=== PATIENT | female | born 1990 | race African-American/Black ===

== ENCOUNTER 2018-06-15 05:10 | Emergency (ER) | payer OTHER ==
[2018-06-15 05:28] VITALS: BP 119/80; PULSE 98; TEMP 97.9; BMI 27.2
[2018-06-15 05:52] LABS: BASO % 1.1 % (0-2.0); EOS % 1.3 % (0-4.5); HEMATOCRIT 39.9 % (32.4-45.2); HEMOGLOBIN 14.1 GM/dL (10.7-15.3); LYMPH % 40.9 % (8-40); MCH 32.2 pg (25.7-33.7); MCHC 35.4 g/dl (32.0-36.0); MEAN CELL VOLUME 91.1 fl (80-96); MEAN PLT VOLUME 7.2 fl (7.5-11.1); MONO % 6.1 % (3.8-10.2); NEUT % 50.6 % (42.8-82.8); PLATELET COUNT 270 K/MM3 (134-434); RBC 4.38 M/mm3 (3.60-5.2); WHITE BLOOD COUNT 6.5 K/mm3 (4.0-10.0)
--- NOTE | 2018-06-15 05:52 | PDOC ---
History of Present Illness - General Chief Complaint: Vaginal Bleeding Stated Complaint: 6 WEEKS BLEEDING Time Seen by Provider: 06/15/18 05:41 History Source: Patient Exam Limitations: No Limitations - History of Present Illness Travel History: No Initial Comments: 06/15/18 05:42 Best Contact:[phone] PCP:Dr. Kiah Dr, N, Rutnick (OB) Pmhx:0 Pshx: 11/10/2010 c section; (2) nose recon after bit by a dog) in 2016 Allergies: NKDA FH:0 Social Hx: Cigarettes/ 0 Alcohol/ 0 Drugs/0 LMP:04/29/2018 (abortions in 2015, 2014, 2013, 2012, 2011 27-year-old female presents to the emergency department complaining of vaginal bleed. Patient describes the vaginal bleed as a quarter size brownish discharge after wiping when she voided earlier this morning. Patient denies any abdominal pains, flank pains, fever, chills, nausea/vomiting, diarrhea, headache, dizziness, lightheadedness, chest pain, back pains, flank pains, urinary symptoms: Frequency/urgency/hesitancy, hematuria. Patient states she has not had care yet for this . Past History - Past Medical History Allergies/Adverse Reactions: Allergies Allergy/AdvReac Type Severity Reaction Status Date / Time No Known Allergies Allergy Verified 06/15/18 05:25 - Suicide/Smoking/Psychosocial Hx Smoking History: Never smoked Have you smoked in the past 12 months: No Information on smoking cessation initiated: No Hx Alcohol Use: No Drug/Substance Use Hx: No Review of Systems - Review of Systems Able to Perform ROS?: Yes Comments:: 06/15/18 05:43 CONSTITUTIONAL: Absent: fever, chills, diaphoresis, generalized weakness, malaise, loss of appetite HEENT: Absent: rhinorrhea, nasal congestion, throat pain, throat swelling, difficulty swallowing, mouth swelling, ear pain, eye pain, visual Changes CARDIOVASCULAR: Absent: chest pain, loss of consciousness, palpitations, irregular heart rate, peripheral edema RESPIRATORY: Absent: cough, shortness of breath, dyspnea with exertion, orthopnea, wheezing, stridor, hemoptysis GASTROINTESTINAL: Absent: abdominal pain, abdominal distension, nausea, vomiting, diarrhea, constipation, melena, hematochezia GENITOURINARY: Absent: dysuria, frequency, urgency, hesitancy, hematuria, flank pain, genital pain MUSCULOSKELETAL: Absent: myalgia, arthralgia, joint swelling SKIN: Absent: rash, itching, pallor HEMATOLOGIC/IMMUNOLOGIC: Absent: easy bleeding, easy bruising, lymphadenopathy, frequent infections ENDOCRINE: Absent: unexplained weight gain, unexplained weight loss, heat intolerance, cold intolerance Is the patient limited Bolivian proficient: No *Physical Exam - Vital Signs Last Vital Signs Temp Pulse Resp BP Pulse Ox 97.9 F 98 H 20 119/80 100 06/15/18 05:15 06/15/18 05:15 06/15/18 05:15 06/15/18 05:15 06/15/18 05:15 - Physical Exam Comments: 06/15/18 05:43 GENERAL: Well developed, well nourished. Awake and alert. No acute distress. HEENT: Normocephalic, atraumatic. PERRLA, EOMI. No conjunctival pallor. Sclera are non- icteric. Moist mucous membranes. Oropharynx is clear. NECK: Supple. Full ROM. No JVD. Carotid pulses 2+ and symmetric, without bruits. No thyromegaly. No lymphadenopathy. CARDIOVASCULAR: Regular rate and rhythm. No murmurs, rubs, or gallops. Distal pulses are 2+ and symmetric. PULMONARY: No evidence of respiratory distress. Lungs clear to auscultation bilaterally. No wheezing, rales or rhonchi. ABDOMINAL: Soft. Non-tender. Non-distended. No rebound or guarding. No organomegaly. Normoactive bowel sounds. MUSCULOSKELETAL Normal range of motion at all joints. No bony deformities or tenderness. No CVA tenderness. EXTREMITIES: No cyanosis. No clubbing. No edema. No calf tenderness. SKIN: Warm and dry. Normal capillary refill. No rashes. No jaundice. Pelvic: External genitalia normal without lesions. Vaginal vault is clear without blood or discharge. Cervix is long and closed. Moderate Sedation - Procedure Monitoring Vital Signs: Procedure Monitoring Vital Signs Temperature 97.9 F 06/15/18 05:15 Pulse Rate 98 H 06/15/18 05:15 Respiratory Rate 20 06/15/18 05:15 Blood Pressure 119/80 06/15/18 05:15 O2 Sat by Pulse Oximetry (%) 100 06/15/18 05:15 ED Treatment Course - LABORATORY CBC & Chemistry Diagram: 06/15/18 05:30 06/15/18 05:30 - RADIOLOGY Radiograph Interpretation: 06/15/18 05:44 Transvaginal US: Progress Note - Progress Note Progress Note: 0701hrs : signed out to GAETANO Jimenez to reeval and transvaginal US *DC/Admit/Observation/Transfer - Referrals Referrals: Tim Jeter [Primary Care Provider] - - Patient Instructions - Post Discharge Activity
[2018-06-15 06:22] LABS: URINE APPEARANCE CLEAR; URINE BILIRUBIN NEGATIVE (<2.0 mg/dL); URINE COLOR LTYELLOW; URINE GLUCOSE (UA) NEGATIVE (NEGATIVE); URINE KETONE NEGATIVE (NEGATIVE); URINE LEUK ESTERASE NEGATIVE (NEGATIVE); URINE NITRITE NEGATIVE (NEGATIVE); URINE PROTEIN NEGATIVE (NEGATIVE); URINE UROBILINOGEN NEGATIVE mg/dL (0.2-1.0)
[2018-06-15 06:26] LABS: EPI CELLS RARE /HPF (FEW); URINE BACTERIA RARE /hpf (NONE SEEN); URINE MUCUS RARE
[2018-06-15 06:42] LABS: ALK PHOS 44 U/L (45-117); ANION GAP 8 MMOL/L (8-16); BILIRUBIN,TOTAL 0.8 mg/dL (0.2-1); BLOOD UREA NITROGEN 19 mg/dL (7-18); CALCIUM 9.6 mg/dL (8.5-10.1); CHLORIDE 104 mmol/L (98-107); CO2 25 mmol/L (21-32); CREATININE 0.6 mg/dL (0.55-1.3); GLUCOSE,RANDOM 93 mg/dL (74-106); POTASSIUM 4.2 mmol/L (3.5-5.1); SGOT/AST 16 U/L (15-37); SGPT/ALT 20 U/L (13-61); SODIUM 138 mmol/L (136-145); TOT PROT 7.4 g/dl (6.4-8.2)
--- NOTE | 2018-06-15 07:28 | PDOC ---
*Physical Exam - Vital Signs Last Vital Signs Temp Pulse Resp BP Pulse Ox 97.9 F 98 H 20 119/80 100 06/15/18 05:15 06/15/18 05:15 06/15/18 05:15 06/15/18 05:15 06/15/18 05:15 - Physical Exam General Appearance: Yes: Nourished. No: Apparent Distress HEENT: positive: Normal Voice. negative: Pale Conjunctivae, Scleral Icterus (R) , Scleral Icterus (L) Respiratory/Chest: negative: Respiratory Distress, Accessory Muscle Use Cardiovascular: positive: Regular Rate Gastrointestinal/Abdominal: positive: Soft. negative: Tender ED Treatment Course - LABORATORY CBC & Chemistry Diagram: 06/15/18 05:30 06/15/18 05:30 - ADDITIONAL ORDERS Additional order review: Laboratory Results 06/15/18 06/15/18 06/15/18 05:30 05:30 05:30 Sodium 138 Potassium 4.2 Chloride 104 Carbon Dioxide 25 Anion Gap 8 BUN 19 H Creatinine 0.6 Creat Clearance w eGFR > 60 Random Glucose 93 Calcium 9.6 Total Bilirubin 0.8 AST 16 ALT 20 Alkaline Phosphatase 44 L Total Protein 7.4 Albumin 4.0 Beta HCG, Quant 41931.7 Urine Color Ltyellow Urine Appearance Clear Urine pH 5.0 Ur Specific Ogilvie 1.021 Urine Protein Negative Urine Glucose (UA) Negative Urine Ketones Negative Urine Blood 1+ H Urine Nitrite Negative Urine Bilirubin Negative Urine Urobilinogen Negative Ur Leukocyte Esterase Negative Urine WBC (Auto) 1 Urine RBC (Auto) 1 Ur Epithelial Cells Rare Urine Bacteria Rare Urine Mucus Rare Blood Type B POSITIVE 06/15/18 05:30 RBC 4.38 MCV 91.1 MCHC 35.4 RDW 12.0 MPV 7.2 L Neutrophils % 50.6 Lymphocytes % 40.9 H Monocytes % 6.1 Eosinophils % 1.3 Basophils % 1.1 Medical Decision Making - Medical Decision Making 06/15/18 07:27 CHange of shift, care of patient accepted form GAETANO Vergara, 27 yo F w/ vaginal bleeding in early . Blood type B positive. Pending sono. Pt feels well. no pain at this time. 06/15/18 09:58 Beta 14,500. Sono does not show a pole, only sees a gestational sac. Pt has an OBGYN appt on the but I told her to return to the ED in 2 days for repeat beta. She verbalized understanding and will return in 2 days. She is non toxic appearing in NAD, no pain at this time. *DC/Admit/Observation/Transfer Diagnosis at time of Disposition: Threatened in early - Discharge Dispostion Disposition: HOME Condition at time of disposition: Stable - Referrals Referrals: Tim Jeter [Primary Care Provider] - - Patient Instructions Printed Discharge Instructions: DI for Threatened Additional Instructions: PLEASE RETURN IN 2 DAYS FOR REPEAT BETA HCG. RETURN EARLIER FOR ANY WORSENING/ CONCERNING SYMPTOMS - Post Discharge Activity
== END 2018-06-15 10:09 | disposition home or self-care (01) ==
LOC: JER 05:10
DX: O26.891 Other specified pregnancy related conditions, first trimester (principal); O20.0 Threatened abortion; Z3A.01 Less than 8 weeks gestation of pregnancy
CPT/HCPCS: 36415; 76830-TC; 80053; 81003; 81015; 84702; 85025; 86850; 86900; 86901; 99282-25

== ENCOUNTER 2018-06-23 09:31 | Day surgery (SDC) | payer OTHER ==
[2018-06-20 09:59] VITALS: BMI 27.2
[2018-06-23] MEDS ORDERED: DEXAMETHASONE SOD PHOSPHATE 4 MG/1 ML VIAL ONE (12:22)
[2018-06-23] MEDS ORDERED: MIDAZOLAM HCL 2 MG/2 ML SINGLE DOSE VIAL ONE (12:22)
[2018-06-23] MEDS ORDERED: LIDOCAINE HCL/PF 2% SDV 5ML VIAL ONE (12:22)
[2018-06-23] MEDS ORDERED: PROPOFOL 20 ML ONE (12:46)
[2018-06-23] MEDS ORDERED: OXYTOCIN 10 UNITS/ML VIAL ONE (13:00)
[2018-06-23] MEDS ORDERED: PHENYLEPHRINE HCL 10 MG/1 ML SINGLE DOSE VIAL ONE (13:03)
[2018-06-23] MEDS ORDERED: DESFLURANE GAS 240 ML BOTTLE IH ONE (13:03)
[2018-06-23] MEDS ORDERED: oxyCODONE HCL 5 MG TABLET PO PRN (13:19)
[2018-06-23] MEDS ORDERED: ONDANSETRON 4 MG/2 ML VIAL IVPUSH PRN (13:19)
[2018-06-23] MEDS ORDERED: LACTATED RINGERS SOLUTION 1,000 ML IV SCH (13:30)
--- NOTE | 2018-06-23 13:42 | OP ---
Operative Note - Note: Operative Date: 06/23/18 Pre-Operative Diagnosis: missed Operation: suction dilatation curettage. Karyotyping Findings: uterus 6 weeks' size Post-Operative Diagnosis: Same as Pre-op Surgeon: Simón Gonzalez Anesthesia: General Estimated Blood Loss (mls): 50 Operative Report Dictated: Yes
--- NOTE | 2018-06-23 13:43 | PN ---
Progress Note (short form) - Note Progress Note: Postop: Patient stabl Procedure discussed. Mother called. Instructions give
--- NOTE | 2018-06-23 14:16 | OP ---
DATE OF OPERATION: DATE OF DICTATION: 06/23/2018 PREOPERATIVE DIAGNOSIS: Missed . POSTOPERATIVE DIAGNOSIS: Missed . PROCEDURES: 1. Suction dilation and curettage. 2. Karyotyping. SURGEON: Lisa Gr MD CHERRY DIPPER: None. ANESTHESIA: Dr. Mejia, general with LMA. PROCEDURE AND FINDINGS: Under light general anesthesia in dorsal lithotomy position, the patient was examined. The cervix was closed. Uterus was noted to be anteverted, anteflexed 6-week size. Routine prep and drape was carried out. The cervix was grasped with tenaculum and gently dilated. Using gallstone forceps, part of the products of conception was retrieved and sent for karyotyping. With further dilatation, suction curette No. 8 was used. Suction curettage was carried out without difficulties producing a fair amount of tissue. Sharp curettage alternated with suction until the cavity was completely emptied. Oxytocin was given IV and Methergine IM. The patient withstood the procedure very well. Uterus was well contracted. Bleeding was gone at the end of the procedure. Total blood loss was 50 mL. The patient withstood the procedure very well. There were no complications from the surgery nor anesthesia. The patient was transferred to PACU stable and comfortable. MD GERONIMO GALARZA/[id number]
[2018-06-23 16:57] VITALS: BP 116/70; PULSE 83; TEMP 98.2
--- NOTE | 2018-06-25 17:34 | PATH ---
Surgical Pathology Report Patient Name: DANA MOYER Med. Rec. #: [id number] /Age/Gender: 1990 (Age: 27) / F Account: [id number] Location: [facility] SURGICAL Taken: 06/23/2018 Received: 06/23/2018 Reported: 06/25/2018 Physicians: Simón Gonzalez MD Specimen(s) Received A: PRODUCTS OF CONCEPTION B: PRODUCTS OF CONCEPTION Clinical History Missed Final Diagnosis A. PRODUCTS OF CONCEPTION: NO CHORIONIC VILLI PRESENT. DECIDUAL TISSUE AND HYPERSECRETORY TYPE ENDOMETRIUM. B. PRODUCTS OF CONCEPTION: CHORIONIC VILLI WITH HYDROPIC CHANGES. Comment: chromosome study result to follow as an addendum report. Clinical correlation is recommended. Electronically Signed Mary Jane Liang M.D. Gross Description A. Received fresh labeled "products of conception," is a 4.0 x 1.5 x 0.4 cm aggregate of pink-vallejo soft tissue fragments. No definite villous tissue or somatic tissue is identified. The specimen is entirely submitted in one cassette. B. Received in formalin labeled "POC," is an 8.0 x 5.5 x 1.0 cm aggregate of vallejo-brown soft tissue fragments. Villous tissue is identified. No somatic tissue is identified. A small business representative portion is submitted in one cassette. /06/23/201806/23/2018
== END 2018-06-23 15:45 | disposition home or self-care (01) ==
LOC: JASU-SURG 09:31
PROVIDERS: ATTEND Specialist
PROC: 10D17ZZ Extraction of Products of Conception, Retained, Via Natural or Artificial Opening (ICD-10-PCS; principal; 2018-06-23 12:00)
DX: O02.1 Missed abortion (principal)
CPT/HCPCS: 86900; 88305-TC; 94760

== ENCOUNTER 2019-06-08 06:25 | Inpatient (IN) | payer OTHER ==
[2019-06-08] MEDS ORDERED: CITRIC ACID/SODIUM CITRATE 30 ML UNIT-DOSE CUP PO ONE (06:45)
[2019-06-08] MEDS ORDERED: ELECTROLYTE-148 SOLN 1,000 ML IV SCH ×2 (06:45→07:45)
[2019-06-08 07:50] LABS: BASO % 0.5 % (0-2.0); EOS % 0.9 % (0-4.5); HEMATOCRIT 31.8 % (32.4-45.2); HEMOGLOBIN 11.4 GM/dL (10.7-15.3); MCH 32.6 pg (25.7-33.7); MCHC 35.7 g/dl (32.0-36.0); MEAN CELL VOLUME 91.2 fl (80-96); MEAN PLT VOLUME 7.5 fl (7.5-11.1); MONO % 6.3 % (3.8-10.2); NEUT % 65.3 % (42.8-82.8); PLATELET COUNT 286 K/MM3 (134-434); RBC 3.49 M/mm3 (3.60-5.2); RDW 12.8 % (11.6-15.6); WHITE BLOOD COUNT 6.5 K/mm3 (4.0-10.0)
[2019-06-08 08:02] LABS: INR 0.91 (0.83-1.09); PROTHROMBIN TIME (PATIENT) 10.7 SEC (9.7-13.0)
[2019-06-08 08:05] LABS: ACTIVATED PTT 28.5 SECONDS (25.2-36.5)
[2019-06-08 08:12] VITALS: BMI 37.1
[2019-06-08] MEDS ORDERED: ONDANSETRON 4 MG/2 ML VIAL IVPUSH PRN (08:15)
--- NOTE | 2019-06-08 08:25 | HP ---
Past Medical History - Primary Care Physician PCP:: Simón Gonzalez E - Admission Chief Complaint: Repeat c/section History of Present Illness: Uneventful Previous c/s x 1. Admitted for repeat c/s at 39 w 3d. History Source: Patient, Caregiver Limitations to Obtaining History: No Limitations - Past Medical History RELAY ASSEMBLER: No: Alzheimer's, CVA, Dementia, Migraine, Multiple Sclerosis, Peripheral Neuropathy, Parkinson's, Seizure, Syncope, TIA, Vertigo, Other Cardiovascular: No: AFIB, Aneurysm, Aortic Insufficiency, Aortic Stenosis, CAD, CHF, Deep Vein Thrombosis, HTN, Hyperlipdemia, PA, Mitral Insufficiency, Mitral Stenosis, Murmur, Pulmonary Hypertension, Other Pulmonary: No: Asthma, Bronchitis, Cancer, COPD, O2 Dependent, Pneumonia, Previously Intubated, Pulmonary Embolus, Pulmonary Fibrosis, Sleep Apnea, Other Gastrointestinal: No: Ascites, Cancer, Constipation, Crohn's Disease, Diverticulitis, Diverticulosis, Esophageal Varices, Gastritis, GERD, GI Bleed, Hemorrhoids, Hiatal Hernia, Inflamatory Bowel Disease, Irritable Bowel Disease, Pancreatitis, Peptic Ulcer Disease, Ulcerative Colitis, Other Hepatobiliary: No: Cirrhosis, Cholelithiasis, Cholecystitis, Choledocholithiasis , Hepatitis A, Hepatitis B, Hepatitis C, Other Renal/: No: Renal Failure, Renal Inusuff, BPH, Cancer, Hematuria, Hemodialysis , Neurogenic Bladder, Renal Calculi, UTI, Other Reproductive: No: Ectopic , Endometriosis, Fibroids, PID, Polycystic Ovary Syndrome, Postmenopausal, Other ...: 3 ...Para: 1 ...Term: 1 ...: 0 ...Spon : 1 ...Induced : 0 ...Multiple Gestation: 0 ...LMP: 09/10/18 ... Weeks Gestation by Dates: 38.5 ...EDC by Sono: 06/12/19 Heme/Onc: No: Anemia, B12 Deficiency, Bleeding Disorder, Cancer, Current Chemotherapy, Current Radiation Therapy, Hemochromatosis, Hypercoaguable State, Myeloproliferative Synd, Sickle Cell Disease, Sickle Cell Trait, Thrombocytopenia, Other Infectious Disease: No: AIDS, C-Diff, Herpes Zoster, HIV, MRSA, STD's, Tuberculosis, VREF, Other Psych: No: Addictions, Anxiety, Bipolar, Depression, Panic, Psychosis, Schizophrenia, Other Musculoskeletal: No: Bursitis, Chronic low back pain, Hemiparesis, Hemiplegia, Osteoarthritis, Paraplegia, Other Rheumatology: No: Fibromyalgia, Gout, Lupus, Rheumatoid Arthritis, Sarcoidosis, Vasculitis, Other ENT: No: Allergic Rhinitis, Sinusitis, Other Dermatology: No: Basal Cell, Cellulitis, Eczema, Melanoma, Psoriasis, Squamous Cell, Other - Past Surgical History Past Surgical History: Yes: None Hx Myomectomy: No Hx Transabdominal Cerclage: No - Smoking History Smoking history: Never smoked Have you smoked in the past 12 months: No - Alcohol/Substance Use Hx Alcohol Use: No - Social History Do you think of yourself as: Straight/Heterosexual Home Medications - Allergies Allergies/Adverse Reactions: Allergies Allergy/AdvReac Type Severity Reaction Status Date / Time No Known Allergies Allergy Verified 06/08/19 07:20 - Home Medications Home Medications: Ambulatory Orders NK [No Known Home Medication] 06/15/18 Review of Systems - Review of Systems Constitutional: reports: No Symptoms Eyes: reports: No Symptoms HENT: reports: No Symptoms Neck: reports: No Symptoms Cardiovascular: reports: No Symptoms Respiratory: reports: No Symptoms Gastrointestinal: reports: No Symptoms Genitourinary: reports: No Symptoms Breasts: reports: No Symptoms Reported Musculoskeletal: reports: No Symptoms Integumentary: reports: No Symptoms Neurological: reports: No Symptoms Endocrine: reports: No Symptoms Hematology/Lymphatic: reports: No Symptoms Psychiatric: reports: No Symptoms Physical Exam - Maternity Vital Signs: Vital Signs Temperature 98.1 F 06/08/19 08:00 Pulse Rate 92 H 06/08/19 08:00 Respiratory Rate 18 06/08/19 08:00 Blood Pressure 123/81 06/08/19 08:00 O2 Sat by Pulse Oximetry (%) Constitutional: Yes: Well Nourished, No Distress, Calm Eyes: Yes: WNL, Conjunctiva Clear, EOM Intact HENT: Yes: WNL, Atraumatic, Normocephalic Neck: Yes: WNL, Supple, Trachea Midline Cardiovascular: Yes: WNL, Regular Rate and Rhythm Breast(s): Yes: WNL - Abdominal Exam/OB Fundal Height: 40 Number of Fetuses: Single Presentation: Vertex Contractions: No Heart Rate Location: LUQ Category: I - Vaginal Exam/OB Vaginal Bleediing: No Amniotic Membrane Status: Intact Station: -2 - Physical Exam Musculoskeletal: Yes: WNL Edema: No Integumentary: Yes: WNL ...Motor Strength: WNL Psychiatric: Yes: WNL - Labs Lab Results: CBC, BMP 06/08/19 07:30 Problem List - Problems (1) Term , repeat Code(s): Z34.90 - ENCNTR FOR SUPRVSN OF NORMAL , UNSP, UNSP TRIMESTER Assessment/Plan Repeat c/section. All optionms discussed. Pt. wants rep. c/s. Aware of all risks, poss complications and consents.
[2019-06-08 08:26] LABS: BLOOD UREA NITROGEN 13.5 mg/dL (7-18); CALCIUM 8.2 mg/dL (8.5-10.1); CREATININE 0.4 mg/dL (0.55-1.3); POTASSIUM 3.8 mmol/L (3.5-5.1)
[2019-06-08] MEDS ORDERED: OXYTOCIN 20 UNITS in 0.9% NS 40 UNIT/2,000 ML INFUS.BAG IV ONE (08:28)
[2019-06-08] MEDS ORDERED: morphine SULFATE/PF 0.5 MG/ML (2cc Syringe - QUVA) ONE (08:43)
[2019-06-08] MEDS ORDERED: ceFAZolin SODIUM 1 GM VIAL ONE (09:05)
[2019-06-08] MEDS ORDERED: PHENYLEPHRINE HCL 10 MG/1 ML SINGLE DOSE VIAL ONE (09:05)
[2019-06-08] MEDS: OXYTOCIN 20 UNITS in 0.9% NS 20 UNIT/1,000 ML INFUS.BAG IV SCH ×3 (09:35→20:26)
[2019-06-08] MEDS ORDERED: METHYLERGONOVINE MALEATE 0.2 MG/1 ML AMP IM PRN (09:52)
[2019-06-08] MEDS ORDERED: oxyCODONE HCL 5 MG TABLET PO PRN (09:52)
[2019-06-08] MEDS ORDERED: ACETAMINOPHEN 1000 MG/100 ML VIAL (NON FORMULARY) IVPB PRN (10:06)
--- NOTE | 2019-06-08 10:13 | OP ---
Operative Note - Note: Operative Date: 06/08/19 Pre-Operative Diagnosis: Term . Previous c/section. Incisional keloid. Operation: Repeat c/section. Resection of keloid Post-Operative Diagnosis: Same as Pre-op Surgeon: Simón Gonzalez License Inspector: Yany Rios Anesthesia: Spinal Estimated Blood Loss (mls): 550 Operative Report Dictated: Yes
--- NOTE | 2019-06-08 10:22 | SURG ---
Surgery Remnant Sorter Note Remnant Sorter: Yany Rios PA-C Date of Service: 06/08/19 Diagnosis: Term . Previous c/section. Incisional keloid. Procedure: Repeat c/section. Resection of keloid I was present for the entirety of the operative procedure. For further detail, please refer to operative report. Visit type - Case Type Case Type: Scheduled - Emergency Emergency Visit: No - New patient This patient is new to me today: Yes Date on this admission: 06/08/19
[2019-06-08] MEDS: IBUPROFEN 800 MG/8 ML IJ IVPB PRN ×2 (12:04→20:25)
--- NOTE | 2019-06-08 12:28 | OP ---
DATE OF OPERATION: DATE OF DICTATION: 06/08/2019 PREOPERATIVE DIAGNOSES: 1. Intrauterine at term. 2. Previous section. 3. Keloid of Pfannenstiel incision. POSTOPERATIVE DIAGNOSES: 1. Intrauterine at term. 2. Previous section. 3. Keloid of Pfannenstiel incision. PROCEDURES: 1. Repeat section. 2. Resection of keloid. SURGEON: Eb Anderson MD BANKING PIN ADJUSTER: GAETANO Contreras ANESTHESIA: Spinal. ANESTHESIOLOGIST: Maria Eugenia Temple MD PROCEDURE AND FINDINGS: Under excellent spinal block following routine prep and drape, old keloid was excised. Incision was carried transversely through the subcutaneous tissue and fascia. The recti muscles were dissected off the fascia and in the midline. Peritoneum was opened vertically. Term uterus with normal adnexa was noted. No adhesions. Bulging lower uterine segment was observed. Bladder flap was opened transversely and peeled down. Hysterotomy was done in transverse fashion and clear amniotic fluid was noted. Incision was extended using bandage scissors, and male infant was delivered, cried, and breathed spontaneously. Cord was wound around the neck. Baby was given Apgars 8 and 9, and weight was 8 pounds 0 ounces. Cord was clamped and divided with delay. Placenta was removed, and uterine cavity was cleaned. The internal os was dilated. Uterus was closed with single layer Biosyn 0 continuous suture. Uterus was placed in the abdomen, and the area was lavaged. Hemostasis was excellent. Count was correct. Abdomen was closed in layers. Peritoneum closed with Biosyn 2-0 suture and fascia with Vicryl 1 suture. Subcutaneous area was closed with several 2-0 Biosyn sutures, and skin was approximated with 3-0 V-Lock subcuticular stitch. Sterile dressing was applied and held in place with a binder. Urine was clear in the Zuluaga catheter bag. Blood loss was 550 mL. Patient did very well and was transferred to PACU comfortable and stable. EB ANDERSON MD [id number] MTDD
[2019-06-08] MEDS ORDERED: CEFAZOLIN 1 GM/D5W 1 GM/50 ML BAG IVPB ONE (18:00)
[2019-06-09] MEDS: IBUPROFEN 800 MG/8 ML IJ IVPB PRN (03:46)
--- NOTE | 2019-06-09 07:51 | PN ---
Progress Note (short form) - Note Progress Note: Surgery POD #1 RPT with scar revision patient seen and examined at bedside with no complaints. Patient states she has been OOB ambulating and voiding without limitation. Her pain is controlled with the oral medication and she is tolerating her regular diet. She denies any CO, SOB, N/V, fever or chills. Vital Signs Temp 98.1 F 06/09/19 05:00 Pulse 75 06/09/19 05:00 Resp 06/09/19 05:46 BP 133/76 06/09/19 05:00 Pulse Ox 100 06/08/19 11:30 Intake & Output 06/08/19 06/08/19 06/09/19 11:59 23:59 11:59 Intake Total 4000 750 1500 Output Total 500 300 800 Balance 3500 450 700 Weight 184 lb Intake: IV 4000 750 1000 NORMAL SALINE+20 UNITS 9290 [id number] 9393 OXYTOCIN - 20 unit In 1, 000 ml @ 125 mls/hr IV ASDIR SARAY Rx#:[id number] Plasma-Lyte 148 - 1,000 2000 ml @ 1000 mls/hr IV ASDIR SARAY Rx#:[id number] Plasma-Lyte 148 - 1,000 1000 ml @ 125 mls/hr IV ASDIR SARAY Rx#:[id number] IVPB 500 Output: Urine 500 300 800 Zuluaga 500 300 Void 800 Other: Voiding Method Indwelling Catheter Indwelling Catheter Toilet # Unmeasured Voids Void 2 Height 4 ft 11 in Body Mass Index (BMI) 37.1 Weight 8 lb Length 20 in CBC, BMP 06/09/19 08:43 06/08/19 07:30 PE: A&Ox3, NAD Unlabored resp on RA ABD: soft, ND with minimal ttp at incision. Incision with steri strips, c/d/i with surrounding tissue intact with no tracking erythema edema or active d/c. Problem List - Problems (1) Term , repeat Assessment/Plan: POS #1 doing well 1) Encourage IS 2) OOB as tolerated 3) Pain control 4) ABD binder PRN comfort 5) D/c planning for home tomorrow vs. Evaluation and plan discussed with Dr Bashir. Code(s): Z34.90 - ENCNTR FOR SUPRVSN OF NORMAL , UNSP, UNSP TRIMESTER
--- NOTE | 2019-06-09 08:08 | PN ---
Progress Note (short form) - Note Progress Note: POD # 1. VSS. Doing well. Voiding w ease. Zuluaga out last night. Passing flatus on reg. diet. Happy. Exam WNL. Problem List - Problems (1) Term , repeat Code(s): Z34.90 - ENCNTR FOR SUPRVSN OF NORMAL , UNSP, UNSP TRIMESTER
[2019-06-09 09:23] LABS: BASO % 0.3 % (0-2.0); HEMATOCRIT 32.8 % (32.4-45.2); HEMOGLOBIN 11.6 GM/dL (10.7-15.3); LYMPH % 16.2 % (8-40); MCH 32.5 pg (25.7-33.7); MCHC 35.4 g/dl (32.0-36.0); MEAN CELL VOLUME 91.7 fl (80-96); MEAN PLT VOLUME 7.5 fl (7.5-11.1); NEUT % 76.5 % (42.8-82.8); PLATELET COUNT 278 K/MM3 (134-434); RBC 3.58 M/mm3 (3.60-5.2); RDW 12.6 % (11.6-15.6); WHITE BLOOD COUNT 9.7 K/mm3 (4.0-10.0)
[2019-06-09] MEDS: ACETAMINOPHEN 325 MG TABLET (FP) PO PRN ×3 (09:25→20:16)
[2019-06-09] MEDS: SIMETHICONE 80 MG TAB.CHEW (FP) PO PRN ×3 (09:26→20:16)
[2019-06-09] MEDS ORDERED: BISACODYL 10 MG SUPP.RECT RC PRN (09:56)
[2019-06-09] MEDS ORDERED: ENOXAPARIN NA (PORCINE) 30 MG/0.3 ML DISP.SYRIN SQ SCH (10:00)
[2019-06-09] MEDS: IBUPROFEN 600 MG TABLET (FP) PO PRN ×2 (14:37→20:14)
[2019-06-09] MEDS: OXYTOCIN 20 UNITS in 0.9% NS 20 UNIT/1,000 ML INFUS.BAG IV SCH (20:07)
[2019-06-09] MEDS: oxyCODONE HCL 5 MG TABLET PO PRN (20:15)
[2019-06-10] MEDS: ACETAMINOPHEN 325 MG TABLET (FP) PO PRN (04:55)
[2019-06-10] MEDS: SIMETHICONE 80 MG TAB.CHEW (FP) PO PRN ×3 (04:55→22:46)
[2019-06-10] MEDS: oxyCODONE HCL 5 MG TABLET PO PRN ×3 (04:56→22:45)
[2019-06-10] MEDS: IBUPROFEN 600 MG TABLET (FP) PO PRN ×3 (04:56→22:46)
--- NOTE | 2019-06-10 10:38 | PN ---
Progress Note (short form) - Note Progress Note: POD # 2 VSS Bowels OK, Feels great. No . PE OK. Wound clean. Abd, soft. Breasts soft. No cva, extrem. T Lochia WNL. Problem List - Problems (1) Term , repeat Code(s): Z34.90 - ENCNTR FOR SUPRVSN OF NORMAL , UNSP, UNSP TRIMESTER
--- NOTE | 2019-06-10 10:40 | PN ---
Progress Note (short form) - Note Progress Note: POD#2 PT without any complaints of CP/SOB. No nausea or emesis with eating. Passing flatus, no BM. She has some complaints of Vital Signs Period Temp Pulse Resp BP Sys/Powell Pulse Ox Last 24 Hr 97.6 F-98.2 F 79-85 18-20 110-127/63-80 GEN: A&0x3, NAD CV; RRR Lungs: CTA b/l ABD: soft, non-distended, inc tenderness. Inc c/d/i
--- NOTE | 2019-06-10 14:45 | PATH ---
Surgical Pathology Report Patient Name: DANA MOYER Med. Rec. #: [id number] /Age/Gender: 1990 (Age: 28) / F Account: [id number] Location: [facility] OBS/SENIOR CYBER SECURITY ANALYST Taken: 06/08/2019 Received: 06/09/2019 Reported: 06/10/2019 Physicians: Simón Gonzalez MD Specimen(s) Received A: OLD SCAR B: PLACENTA Clinical History , 39.3 weeks Final Diagnosis A. OLD SCAR, EXCISION: SKIN AND UNDERLYING SOFT TISSUE WITH DERMAL FIBROSIS CONSISTENT WITH SCAR. B. PLACENTA, SECTION: 686 G THIRD TRIMESTER PLACENTA WITH TRIVASCULAR UMBILICAL CORD AND UNREMARKABLE PLACENTAL MEMBRANES. Electronically Signed Valeria oTbias M.D. Gross Description A. Received in formalin labeled "old scar," are 2 vallejo, unoriented portions of skin with underlying soft tissue measuring 1.0 x 0.4 cm and 9.0 x 0.5 cm. The epidermal surfaces display a well-healed scar. Night Manager sections are submitted in one cassette. B. The specimen is received fresh labeled placenta and is a 686 gram, 19.5 x 15.5 x 3.2 cm. placenta with attached membranes and umbilical cord. The attached membranes are vallejo, translucent with focal opacities and insert marginally. The umbilical cord measures 40 cm. in length and averages 1.3 cm. in diameter. The cord inserts eccentrically, 2.5 cm. to the nearest margin. No true knots or strictures are identified. Cut surface of the umbilical cord reveals 3 vessels. The surface is kearns-blue with minimal fibrin deposition and appropriate caliber vessels. The maternal surface is red-brown with focal defects. Sectioning reveals red-brown, spongy parenchyma. No lesions are identified. Night Manager sections are submitted in three cassettes as follows: 1- membrane rolls and umbilical cord; 2-3- full thickness sections of placenta. /06/09/2019 [facility]/06/09/2019
--- NOTE | 2019-06-10 15:16 | PN ---
Progress Note (short form) - Note Progress Note: Anesthesia Called to see pt with headache. Anesthesia chart reviewed c/o frontal headache. Headache not typical of spinal headache on post op day #2. Will order fiorecet po to see if there is any improvement. Instructed nurse for Tylenol po intake. Continue to observe to see if headache continues. Xu Serna MD
[2019-06-10] MEDS: ACETAMINOPHEN/CAFFEINE/BUTALBITAL 1 TAB PO PRN (15:32)
[2019-06-11] MEDS: oxyCODONE HCL 5 MG TABLET PO PRN (07:45)
[2019-06-11] MEDS: SIMETHICONE 80 MG TAB.CHEW (FP) PO PRN (07:47)
[2019-06-11] MEDS: IBUPROFEN 600 MG TABLET (FP) PO PRN (07:47)
--- NOTE | 2019-06-11 08:06 | PN ---
Progress Note (short form) - Note Progress Note: Surgery POD #3 RPT with scar revision patient seen and examined at bedside with no complaints. Patient states she has been OOB ambulating and voiding without limitation. Her pain is controlled with the oral medication and she is tolerating her regular diet. She denies any CO, SOB, N/V, fever or chills. Vital Signs Temp 97.7 F 06/10/19 22:00 Pulse 82 06/10/19 22:00 Resp 18 06/10/19 22:00 BP 146/76 06/10/19 22:00 Pulse Ox 100 06/08/19 11:30 Intake & Output 06/10/19 06/10/19 06/11/19 11:59 23:59 11:59 Other: Voiding Method Toilet Toilet CBC, BMP 06/09/19 08:43 06/08/19 07:30 Urine culture: Pending PE: A&Ox3, NAD Unlabored resp on RA ABD: soft, ND with minimal ttp at incision. Incision with steri strips, c/d/i with surrounding tissue intact with no tracking erythema edema or active d/c. B/L LE compartments soft, supple and non-tender with +2 DP, NVID Problem List - Problems (1) Term , repeat Assessment/Plan: POS #3 doing well 1) Encourage IS 2) OOB as tolerated 3) Pain control 4) ABD binder PRN comfort 5) D/c planning for home tomorrow. Evaluation and plan discussed with Dr Bashir. Code(s): Z34.90 - ENCNTR FOR SUPRVSN OF NORMAL , UNSP, UNSP TRIMESTER
--- NOTE | 2019-06-11 08:55 | PN ---
Progress Note (short form) - Note Progress Note: POD # 3. VSS. Feels well. Some dysuria. C & s pending. Will Rx Macrobid and Pyridium. PE excellent. Healing. Instructions given, Discharge. Problem List - Problems (1) Term , repeat Code(s): Z34.90 - ENCNTR FOR SUPRVSN OF NORMAL , UNSP, UNSP TRIMESTER
[2019-06-11] MEDS: ACETAMINOPHEN/CAFFEINE/BUTALBITAL 1 TAB PO PRN (09:43)
[2019-06-11 09:49] VITALS: BP 126/81; PULSE 77; TEMP 98.2
--- NOTE | 2019-06-11 14:23 | PN ---
Progress Note (short form) - Note Progress Note: Patient says her post dural puncture headache id getting better on Fiorecet so will dc her home on it and she was advised to come back if headache gets worst at any time.
--- NOTE | 2019-06-11 16:14 | DS ---
Physical Exam: SUBJECTIVE: POD#3 patient seen and examined at bedside. Patient states she is still having some abdominal pain upon urination but she denies any fever or chills. Her headache is mostly unchanged but much better with the fioricet. She denies any CP, SOB, N/V, blurred vision or change in vision OBJECTIVE: Vital Signs Period Temp Pulse Resp BP Sys/Powell Pulse Ox Last 24 Hr 97.7 F-98.2 F 77-82 18-20 126-146/76-81 PHYSICAL EXAM GENERAL: The patient is awake, alert, and fully oriented, in no acute distress. HEAD: Normal with no signs of trauma. EYES: sclera anicteric, conjunctiva clear. LUNGS: unlabored resp on RA, no accessory muscle use. ABDOMEN: Soft, minimal incisional tenderness, steris in place with surrounding tissue intact with no tracking erythema or edema no collection or active d/c nondistended, no guarding, no rebound, no hepatosplenomegaly, no masses. EXTREMITIES: b/l LE compartment soft, supple and non-tender with 2+ pulses, warm , well-perfused, no edema. NEUROLOGICAL: Cranial nerves II through XII grossly intact. Normal speech, gait not observed. PSYCH: Normal mood, normal affect. SKIN: Warm, dry, normal turgor, no rashes or lesions noted. LABS CBC, BMP 01// 08:43 06/08/19 07:30 Microbiology 06/10/19 11:30 Urine - Urine Clean Catch Urine Culture - Final Staphylococcus Coagulase Neg HOSPITAL COURSE: Date of Admission:06/08/19 The patient was admitted to the Med-Surg Unit after a repeat , now POD #3. Pain management was achieved with a narcotic and non-narcotic oral and IV regimen. POD #1, the patient passed flatus and diet was advanced. Hemoglobin and hematocrit were monitored as well as vitals and remained stable throughout admission. Neelam-operative IV ABX were administered. DVT prophylaxis was achieved with Lovenox 40mg qd, SCDs and early ambulation. The patient ambulated the halls without issue. POD #2 patient c/o dysuria. and headache. A urine culture was done and patient was found to have a UTI. She was evaluated by the anesthesia team for her headache and started on Fioricet and instructed to continue the medication on d/c and return to the ER if her headache worsens. She was also started on an antispamotic bladder medication and antibiotics for the UTI. The discharge instructions and all medications were reviewed with the patient. All questions answered and patient expressed understanding. Above plan discussed with Dr. Gonzalez. Date of Discharge: 06/11/19 Minutes to complete discharge: 25 Discharge Summary Problems reviewed: Yes Reason For Visit: [id number] Current Active Problems Term , repeat (Acute) Condition: Good - Instructions Diet, Activity, Other Instructions: Discharge Instructions: Wound care You have steri-strips over your incision. Leave these in place. They will peel off in the next 7 to 10 days. Do Not peel them off. You may shower after surgery. If there are tapes present on the skin, they can get wet. When showering, allow soap and water to run over the incision, do not scrub the incision. Pat dry well after showering. You may continue to use the abdominal binder for comfort. When coughing, sneezing or getting up it is helpful to hold a pillow against the incision for comfort. Diet There are no dietary restrictions. Eat healthy, high-fiber foods. Drink 6 to 8 glasses of liquid each day. This will assist in keeping your bowels are regular. You may want to take an over the counter stool softener such as DulcoEase as constipation is a common side effect of narcotic pain medications. Activity: No heavy lifting, exercise or strenuous activity until cleared by your doctor. Do not lift anything heavier than the baby until otherwise cleared by your doctor. Dont try to take care of anyone other than the baby and yourself. Get lots of rest, take naps in throughout the day. Increase your activity level bit by bit. We recommend postsurgical breathing and coughing exercises to help keep your lungs clear. You may take the incentive spirometer home with you and continue using it. Do not drive until cleared by your doctor. No sexual activity until cleared by your doctor. The best exercise is walking. Small amounts done frequently are best. It is best to stay mobile to avoid development of blood clots in your legs. Medications: Pain management You may take Tylenol (Acetaminophen) or Ibuprofen (for example, Motrin, Advil etc) for mild pain. Any pain prescription medication ordered should be taken as prescribed for moderate to severe pain. Please take as directed. If the prescribed dosage is not controlling your pain, please contact Dr Gonzalez. Do not drive, drink alcohol or operate heavy machinery while taking narcotic pain medications. You may Acetaminophen and Ibuprofen alternating. For example, you can take Acetaminophen at 10AM followed by Ibuprofen at 1pm, followed by Acetaminophen again at 4pm. We recommend keeping track of the dosage and time you take each to ensure you do not exceed the pharmacy clerk's recommended daily dosage. Do not desmond Fioricet with Acetaminophen as this can lead to Tylenol overdose. Take Ibuprofen with food, Acetaminophen may be taken on an empty stomach. Do not exceed 3g (3000mg) of Acetaminophen in 24 hours. Do not exceed 2400mg Ibuprofen in 24 hours. Follow up: Please call the office for a follow up appointment in Call your doctor immediately if you have: Fever of 100.4F (38C) or higher Redness, pain, or drainage at your incision site Bleeding that requires a new sanitary pad every hour Severe pain in the abdomen Pain or urgency with urination Foul odor from vaginal discharge Trouble urinating or emptying your bladder No bowel movement within 1 week after the of your baby Swollen, red, painful area in the leg Appearance of rash or hives Sore, red, painful area on the breasts that may come with flu-like symptoms Feelings of anxiety, panic, and/or depression If you headache becomes worse in any way, please call Dr Gonzalez and return to the hospital via the Emergency Room. call Dr. Gonzalez for follow up appointment in 3 week for incision check and 6 weeks for appointment. Referrals: Simón Gonzalez MD [Staff Physician] - Disposition: HOME - Home Medications Comprehensive Discharge Medication List: Ambulatory Orders Vits96/Iron Fum/Folic [ Tablet] 1 each PO DAILY 06/08/19 Valacyclovir HCl [Valtrex] 1 tab PO DAILY 06/08/19 Butalb/Acetaminophen/Caffeine [Fioricet Tablet 50-325-40] 1 tab PO Q6H PRN #20 tablet MDD 4 06/11/19 Docusate Sodium [Colace -] 100 mg PO TID #21 capsule 06/11/19 Ibuprofen 800 mg PO TID PRN #30 tablet 06/11/19 Nitrofurantoin Monohyd/M-Cryst [Macrobid -] 100 mg PO BID #14 capsule 06/11/19 Phenazopyridine HCl [Pyridium] 200 mg PO TID 2 Days #6 tablet 06/11/19 Problem List - Problems (1) Term , repeat Assessment/Plan: POD #3 RPT with post op UTI and recolving headache -D/c on Macrobid and Pyridium -D/c on Fioricet for headache and return to the ER immediately should symptoms worsen -Daily IS -D/c home Problems reviewed: Yes Code(s): Z34.90 - ENCNTR FOR SUPRVSN OF NORMAL , UNSP, UNSP TRIMESTER This patient is new to me today: Yes Date on this admission: 06/11/19 Emergency Visit: No Critical Care patient: No - Discharge Referral Referred to [facility] No
== END 2019-06-11 15:10 | disposition home or self-care (01) | DRG 540 ==
LOC: JLDR 06:25 → J3W 11:46
PROVIDERS: ADMIT Specialist; ATTEND Specialist
PROC: 10D00Z1 Extraction of Products of Conception, Low, Open Approach (ICD-10-PCS; principal; 2019-06-08)
DX: O34.211 Maternal care for low transverse scar from previous cesarean delivery (principal); N85.8 Other specified noninflammatory disorders of uterus; O29.43 Spinal and epidural anesthesia induced headache during pregnancy, third trimester; Z3A.39 39 weeks gestation of pregnancy; O23.43 Unspecified infection of urinary tract in pregnancy, third trimester; Z37.0 Single live birth
CPT/HCPCS: 36415; 80048; 85025; 85610; 85730; 86593; 86850; 86900; 86901; 87077; 87086; 88304-TC; 88307-TC